=== PATIENT | male | born 1950 | race Caucasian/White ===

== ENCOUNTER 2021-12-23 10:19 | Observation (INO) ==
--- NOTE | 2021-12-21 10:56 | Anesthesiology Consultation ---
Date of Service December 21, 2021 Assessment & Plan (1) Encounter for pre-operative examination: Chart Review Chart Review: Acceptable Risk for Surgery and Patient NOT seen in Pre Admission Testing Consults Requested none History Surgery Operation Date: 12/23/21 12:40 Proposed Procedures p Right Total Knee Arthroplasty - Rohan Tamez DO Height/Weight Height: 5 ft 7.5 in Weight: 83.915 kg Allergies Allergy/AdvReac Type Severity Reaction Status Date / Time No Known Allergies Allergy Verified 12/20/21 15:31 Medications Home Medications Medication Instructions Recorded Confirmed Last Taken atorvastatin 20 mg tablet 20 mg PO QPM 06/14/21 12/20/21 Unknown ezetimibe 10 mg tablet 10 mg PO QPM 06/14/21 12/20/21 Unknown metoprolol tartrate 25 mg tablet 12.5 mg PO BID tab 06/14/21 12/20/21 Unknown nitroglycerin 0.4 mg sublingual 0.4 mg SUBLINGUAL Q3M PRN tab 06/14/21 12/20/21 Unknown tablet aspirin 81 mg capsule 81 mg PO QAM 08/17/21 12/20/21 Unknown Wheeled Walker #1 ea 08/23/21 08/23/21 Unknown Past Medical History Medical History Chronic kidney disease, stage 3a ? DETAILS Elevated prostate specific antigen [PSA] H/O acute myocardial infarction 2019, stent placed, follows with [facility] cardiology Hyperlipidemia Hypertension Osteoarthritis Prostatic intraepithelial neoplasia Past Family History Family History Other No family history of adverse response to anesthesia Past Surgical History Surgical History History of heart artery stent 2019 one stent at [facility] in [place] follow with [facility] cardio History of right shoulder replacement History of tonsillectomy Hx laparoscopic cholecystectomy Hx of colonoscopy Hx of rotator cuff surgery LEFT [place] teeth removed Social History Smoking Status: Never smoker tobacco type: smokeless tobacco Do You Dip or Chew Tobacco: Yes (ADVISED) Hx Alcohol Use: Yes Alcohol type: beer, wine and hard liquor alcohol intake frequency: a few times a week substance use type: does not use Testing Electrocardiogram Date: 08/23/21 Findings: + NSR @ and + RBBB Echocardiogram Date: 09/22/21 EF: 60-64 Valvular Disease: + no significant valvular disease
--- NOTE | 2021-12-22 18:10 | History & Physical Report ---
Date of Service December 22, 2021 Assessment & Plan (1) Osteoarthritis of right knee: We will proceed with a right total knee arthroplasty. Postoperatively he will be started on aspirin for DVT prophylaxis and kept overnight for postoperative medical management. He plans to use [employer] upon discharge. History of Present Illness Chief Complaint: Osteoarthritis of the right knee. Primary Care Provider: Johny Cole PA-C Vincent is a pleasant 71-year-old male who is been dealing with chronic worsening right knee pain. X-rays and clinical examination have been diagnostic for advanced arthritis of the right knee. After failing conservative treatment, he elected proceed with a right total knee arthroplasty. Allergies Allergy/AdvReac Type Severity Reaction Status Date / Time No Known Allergies Allergy Verified 12/20/21 15:31 Home Medications Medication Instructions Recorded Confirmed Type atorvastatin 20 mg tablet 20 mg PO QPM 06/14/21 12/20/21 History ezetimibe 10 mg tablet 10 mg PO QPM 06/14/21 12/20/21 History metoprolol tartrate 25 mg tablet 12.5 mg PO BID tab 06/14/21 12/20/21 History nitroglycerin 0.4 mg sublingual 0.4 mg SUBLINGUAL Q3M PRN tab 06/14/21 12/20/21 History tablet aspirin 81 mg capsule 81 mg PO QAM 08/17/21 12/20/21 History Wheeled Walker #1 ea 08/23/21 08/23/21 Rx Past Med/Surg History Medical History Chronic kidney disease, stage 3a ? DETAILS Elevated prostate specific antigen [PSA] H/O acute myocardial infarction 2019, stent placed, follows with [facility] cardiology Hyperlipidemia Hypertension Osteoarthritis Prostatic intraepithelial neoplasia Surgical History History of heart artery stent 2019 one stent at [facility] in [place] follow with [facility] cardio History of right shoulder replacement History of tonsillectomy Hx laparoscopic cholecystectomy Hx of colonoscopy Hx of rotator cuff surgery LEFT [place] teeth removed Family History Other No family history of adverse response to anesthesia Social History Smoking Status: Never smoker Second Hand Exposure: No; Hx Alcohol Use: Yes Alcohol type: beer, wine and hard liquor Preferred Language: Rw[place] Communication Ability: Effective [employer] Required: No Beliefs That Will Affect Care: None Current Living Situation: Spouse Feels Safe at Home: Yes Assistive Devices: Glasses Review of Systems All systems reviewed & are unremarkable except as noted in HPI & below. Physical Exam On physical examination the right knee, he has a slight valgus deformity. His range of motion from 0 to 120 degrees. Is no instability. He has pain over the distal medial femoral condyle and over the medial joint line.. Constitutional WD/WN, vitals as above Eyes PERRL, conjunctivae normal, anicteric sclerae ENMT external ear and nose normal, oropharynx normal Neck trachea midline, no thyromegaly Respiratory normal respiratory effort Cardiovascular RRR, no murmur, no edema Gastrointestinal (Abdomen) normal bowel sounds, soft, nontender, no hepatosplenomegaly Psychiatric A+Ox3, euthymic affect Results & Data Results & Data Laboratory Results . Diagnostic Findings X-rays of the right knee show advanced osteoarthritis with joint space narrowing, osteophyte formation, and [id number] articulation. PG Care Time/CCT Total # of Minutes Spent Total Time Spent with Patient: Total time spent is greater than 50% in coordination of care (as documented) at patient's floor/unit and/or counseling patient: Coding Level of Care Code None Diagnoses Osteoarthritis of right knee M17.11
[~2021-12-23 10:19] MED LIST: ACETAMINOPHEN 500 MG TAB PO SCH; BUPIVACAINE 0.5 % 5 MG/1 ML PF 10ML VIAL ONE; FAMOTIDINE 20 MG TAB PO SCH; GABAPENTIN 300 MG CAP PO SCH; Ketorolac (*for OR use only*) 30 MG, dexAMETHasone 4 MG, KETAMINE HCL (**OR use only) 1... INFIL SCH; LR 500ML BOLUS, THEN 15ML/HR IV SCH; LR 60ML/HR IV SCH; ROPIVACAINE 0.5% 5 MG/ML 30 ML VIAL ONE; TRANEXAMIC ACID 1,000 MG **IV Intra-op IV SCH; TRANEXAMIC ACID 1,000 MG **IV Pre-op IV SCH; ceFAZolin 2000MG 2,000 MG/15 ML SYR IV SCH; dexAMETHasone 4 MG TAB PO SCH
[2021-12-23] MEDS ORDERED: ONDANSETRON INJ 2 MG/ML 2 ML VIAL ONE (11:22)
[2021-12-23] MEDS ORDERED: DEXAMETHASONE SOD INJ 4 MG/ML VIAL ONE (11:22)
[2021-12-23] MEDS ORDERED: PROPOFOL IV EMULSION 10 MG/ML 20 ML VIAL IV ONE ×3 (11:22→12:00)
[2021-12-23] MEDS ORDERED: MIDAZOLAM HCL 1 MG/ML 2ML VIAL ONE (11:22)
[2021-12-23] MEDS ORDERED: fentaNYL citrate 100 MCG/2 ML VIAL ONE (11:22)
[2021-12-23] MEDS ORDERED: LIDOCAINE 2% 2 ML VIAL/AMP(20MG/ML) INFIL ONE (11:22)
--- NOTE | 2021-12-23 11:32 | History & Physical Bridge Note ---
Date of Service December 23, 2021 History & Physical Bridge Note I have examined the patient, reviewed the History & Physical and in the interval since the performance of the History & Physical I have noted the following changes of clinical significance: no changes noted
[2021-12-23] MEDS ORDERED: ePHEDrine sulfate 50 MG/ML AMP IV PRN (12:47)
[2021-12-23] MEDS ORDERED: ATROPINE SULFATE 0.1 MG/ML 10ML SYR IV PRN (12:47)
[2021-12-23] MEDS ORDERED: HYDROmorphone INJ 1 MG/ML SYRINGE IV PRN (12:47)
[2021-12-23] MEDS ORDERED: ONDANSETRON INJ 2 MG/ML 2 ML VIAL IV PRN ×2 (12:47→15:56)
--- NOTE | 2021-12-23 13:41 | Operative Report ---
PG Post Operative Report Pre & Post Diagnosis Operation Date: 12/23/21 12:40 Pre-Op Diagnosis: Right Knee Osteoarthritis Post-Op Diagnosis: Right Knee Osteoarthritis I identified the patient and participated in the time-out.: Yes Procedure Operation Date: 12/23/21 12:40 Actual Procedures p Right Total Knee Arthroplasty(Right) - Rohan Tamez DO Surgeon Rohan Tamez DO [place] Rohan Coronado PAC Estimated Blood Loss 10 Findings Consistent with Post-Op Diagnosis Specimens Right femoral and tibial bone Complications none Disposition Disposition: Recovery Room Indications Vincent is a pleasant 71-year-old male who is been dealing with chronic increasing right knee pain. X-rays and clinical examination were diagnostic for advanced arthritis of the right knee. After failing conservative treatment, he elected proceed with a right total knee arthroplasty. Description of Procedure Implants used: I used a Holli Persona total knee arthroplasty system with a size 9 standard femur, F tibia, 31 oval patella, and a size 10 medial congruent polyethylene bearing. All components were cemented in place with Biomet cement. Vincent name arrived [facility] for the above procedure. He was seen in the preoperative holding area and the operative extremity was identified and signed. He was given a preoperative antibiotic, TXA, a spinal anesthetic and an adductor nerve block. He was taken back to the operating room and laid on the table in supine position. He was given basic sedation. The operative knee was then prepped and draped in sterile fashion. A timeout was done, and the patient and the operative extremity was properly identified. A midline incision was made directly over the patella. Dissection was taken down to the extensor mechanism. A subvastus arthrotomy was used. The medial retinaculum was released and the fat pad was mostly excised. The knee was flexed and the ACL, PCL, and meniscus were removed. A drill was sent down the center of the femoral canal followed by an intramedullary dina. Off that dina a distal femoral cutting block was placed. 9 mm was resected off the distal femur at 5 of valgus. A posterior referencing AP sizing guide was then placed on the distal femur. The femur measured to be a size 9. 2 drill holes were placed in 3 of external rotation. A 4-in-1 cutting block was then impacted into place. Anterior, posterior, and chamfer cuts were then made. The proximal tibia was then exposed. An external tibial alignment guide was placed. A tibial cut guide was then anchored in place and the proximal tibia was then resected. The posterior aspect of the knee was then opened up and any additional meniscus fragments and osteophytes were removed. The tibia measured to be a size F. The tibial plate was then placed in the appropriate rotation and the tibia was drilled and punched. Trial components were then placed. I used a size 10 medial congruent polyethylene insert. The knee was brought through a full range of motion and felt to be stable. The peg holes for the femoral component were then drilled. The patella was then everted and 9 mm was resected off the posterior aspect of the patella. The patella measured to be a size 31 oval. 3 peg holes were then drilled. A trial patella was placed. The knee was once again brought through a full range of motion and felt to be stable. Trial components were then removed. The surrounding soft tissues were injected with 100 cc of an orthopedic pain control cocktail. All components were then cemented into place with Biomet cement. The final polyethylene insert was then snapped into place. Once cement was dry the tourniquet was deflated. Hemostasis was obtained. A dilute betadyne lavage was then done for 3 minutes. The joint was then irrigated with normal saline solution. The subvastus arthrotomy was then closed with #1 Vicryl suture. The skin was closed with 2-0 Vicryl, 3-0V lock suture, and sb. A soft compressive dressing was placed. He was then transferred to a hospital bed and taken to the postanesthesia care unit in stable condition. He tolerated the procedure well. Rohan Coronado PA-C, was present for the entire procedure. He was critical for patient positioning, prepping, draping, retraction exposure, wound closure and application of sterile dressing. I attest to the content of the Intraoperative Record and any orders documented therein. Any exceptions are noted below.
--- NOTE | 2021-12-23 14:37 | XRay Report ---
XR knee RT 1 or 2V routine HISTORY: 71 years-old Male Surgical Post Op right knee total joint arthroplasty COMPARISON: Knee radiographs 06/14/2021 TECHNIQUE: 2 views of the right knee FINDINGS: Right knee total joint arthroplasty with patellar resurfacing. Anterior midline skin sb are note d along with expected postoperative soft tissue swelling with deep tissue air. No acute fracture, mal alignment or unexpected opaque foreign body. IMPRESSION: Right knee total joint arthroplasty with expected postoperative changes. ACT 112: Negative or not required by law. The above report was generated using voice recognition software. It may contain grammatical, syntax o r spelling errors. Electronically signed by: Alok Santana M.D. 12/23/2021 2:36 PM
--- NOTE | 2021-12-23 15:42 | Anesthesiology Progress Note ---
Date of Service December 23, 2021 Anesthesia Post Procedure Vital Signs Vital Signs: Temp Pulse Pulse Resp BP BP Pulse Ox 12/23/21 15:40 36.3 C L 62 16 128/83 94 12/23/21 15:30 60 12 131/81 94 12/23/21 15:20 65 16 139/81 96 12/23/21 15:10 61 14 142/87 H 95 12/23/21 15:00 67 12 138/83 96 12/23/21 14:50 63 12 151/80 H 95 12/23/21 14:40 62 12 142/82 H 96 12/23/21 14:30 67 16 166/87 H 94 12/23/21 14:20 53 L 15 151/86 H 95 12/23/21 14:10 52 L 14 151/80 H 95 12/23/21 14:07 36.0 C L 75 12 150/81 H 98 12/23/21 11:00 36.6 C 68 18 115/82 100 Transfer of Care Handoff Completed per policy Notes Mental Status: alert / awake / arousable Patient Amnestic to Procedure: Yes Nausea / Vomiting: adequately controlled Pain: adequately controlled Airway Patency, RR, SpO2: stable & adequate BP & HR: stable & adequate Hydration State: stable & adequate Anesthetic Complications: no major complications apparent
[2021-12-23] MEDS ORDERED: NALOXONE HCL 0.4 MG/1 ML VIAL/CARP IV PRN (15:56)
[2021-12-23] MEDS ORDERED: MAGNESIUM HYDROXIDE SUSP 30 ML UDC PO PRN (15:56)
[2021-12-23] MEDS ORDERED: KETOROLAC 30 MG/ML VIAL IV SCH (15:56)
[2021-12-23] MEDS ORDERED: NITROGLYCERIN SL 0.4 MG/TAB TAB SL PRN (15:56)
[2021-12-23] MEDS ORDERED: oxyCODONE HCL IR 5 MG TAB (IMMEDIATE RELEASE) PO PRN (15:56)
[2021-12-23] MEDS ORDERED: METOCLOPRAMIDE HCL INJ 5 MG/ML 2 ML VIAL IV PRN (15:56)
[2021-12-23] MEDS ORDERED: bisacodyL 10 MG SUPP PR PRN (15:56)
[2021-12-23] MEDS ORDERED: HYDROmorphone INJ 0.5 MG/0.5 ML SYR IV PRN (15:56)
[2021-12-23] MEDS: SODIUM CHLORIDE 0.9% 1000ML 1,000 ML IV SCH (16:13)
[2021-12-23] MEDS ORDERED: PROMETHAZINE HCL 12.5 MG in SODIUM CHLORIDE 0.9% 50 ML IV PRN (16:25)
[2021-12-23] MEDS: KETOROLAC 30 MG/ML VIAL IV SCH ×2 (16:54→21:33)
[2021-12-23] MEDS: ceFAZolin 2000MG 2,000 MG/15 ML SYR IV SCH (20:23)
[2021-12-23] MEDS: ASPIRIN 81 MG ECTAB PO SCH (20:24)
[2021-12-23] MEDS: DOCUSATE SODIUM 100 MG CAP PO SCH (20:24)
[2021-12-23] MEDS: METOPROLOL TARTRATE 25 MG TAB PO SCH ×2 (20:24→20:47)
[2021-12-23] MEDS ORDERED: EZETIMIBE 10 MG TABLET PO SCH (21:00)
[2021-12-23] MEDS ORDERED: SENNA 8.6 MG TAB PO SCH (21:00)
[2021-12-23] MEDS ORDERED: ATORVASTATIN 20 MG TAB PO SCH (21:00)
[2021-12-23] MEDS: ACETAMINOPHEN 500 MG TAB PO SCH (21:33)
[2021-12-24] MEDS: SODIUM CHLORIDE 0.9% 1000ML 1,000 ML IV SCH (02:31)
[2021-12-24] MEDS: ceFAZolin 2000MG 2,000 MG/15 ML SYR IV SCH (05:17)
[2021-12-24] MEDS: KETOROLAC 30 MG/ML VIAL IV SCH ×2 (05:17→12:43)
[2021-12-24] MEDS: ACETAMINOPHEN 500 MG TAB PO SCH (05:17)
--- NOTE | 2021-12-24 07:53 | Discharge Summary ---
Date of Service December 24, 2021 Admission HPI (Per Admitting) Vincent is a pleasant 71-year-old male who is been dealing with chronic worsening right knee pain. X-rays and clinical examination have been diagnostic for advanced arthritis of the right knee. After failing conservative treatment, he elected proceed with a right total knee arthroplasty. Admission Exam (Per Admitting) On physical examination the right knee, he has a slight valgus deformity. His range of motion from 0 to 120 degrees. Is no instability. He has pain over the distal medial femoral condyle and over the medial joint line.. Principal Diagnosis Same as "Discharge Diagnosis" noted below under Discharge Instructions. Discharge Exam On physical examination of the right knee, the dressing is clean and dry. He has active dorsiflexion plantarflexion of his right ankle. Sensations intact throughout. Discharge Data Procedures Performed Operation Date: 12/23/21 12:40 Actual Procedures p Right Total Knee Arthroplasty(Right) - Rohan Tamez DO Ordered Studies 12/23/21 05:00 US - OR guided needle placemen Routine Hospital Course (1) Status post right knee replacement: On December 23, 2021 Vincent arrived to [facility] and underwent a right knee replacement without complication. He had a spinal anesthetic. Post operatively he was started on aspirin for DVT prophylaxis and transferred to the general orthopedic floors. His hospital course was uneventful. On postop day #1 his vital signs were stable and his pain was well controlled. He was able to participate well with physical therapy doing ambulation and range of motion exercises. He was then discharged home. He will follow-up with orthopedics in 2 weeks. PG Care Time/CCT Total # of Minutes Spent Total Time Spent with Patient: Total time spent is greater than 50% in coordination of care (as documented) at patient's floor/unit and/or counseling patient: Discharge Plan Discharge Items Patient Disposition: Home - Home Health Services Reason For Visit: DJD Knee Right Discharge Diagnosis: Right knee replacement Activity: Per Instructions section Non-emergency contact: Surgeon Call non-emergency contact if: your wound has increased redness and your wound has increased drainage Follow-up/Referrals: Johny Cole PA-C [Primary Care Provider] - Diet: Regular Addtl Attending Provider Instructions: Activity and Therapy Recommendations: * If you are using [facility] then therapy will be provided at your home until they feel you have accomplished all of your goals. * If you are using [facility] then Physical Therapy will be provided until they feel you are ready to start Outpatient Physical Therapy. * If you are not using home therapy then Outpatient Physical Therapy should start about 3-5 days from your day of surgery. Therapy will last about 6-10 weeks * It is important not to put a pillow under your knee when you are relaxing or sleeping. It is just as important to make sure you are getting your knee perfectly straight as it is to regain your knee bend. * You were shown a series of exercises in the hospital. Do these exercises three times each day including the exercises you were shown in physical therapy. * Get up and walk several times each day. For the first four weeks, try not to stand or walk for more than one hour at a time. If you do stand or walk for more than one hour, you will not hurt anything, but your leg will likely swell. * As you feel comfortable, you may change from the walker or crutches to a cane and then to independent walking. Medications: * Narcotic You will likely be sent home from the hospital with a prescription for the narcotic pain medication that worked best throughout your stay. * Aspirin Most patients will be required to take Aspirin 81mg twice a day for 6 weeks after surgery. This is obtained [id number] and a prescription is not necessary. * Other medications may be prescribed for specific circumstances. If you have any questions, please call the office at . * Resume previous home medications unless otherwise instructed TEDs/Elastic Stockings: The white elastic stockings help limit swelling and prevent blood clots from forming in your legs.~ The more you wear them, the more they work. Wear them for six weeks. Dressing Care: The dressing can be changed after physical therapy on postop day #1. Daily dry dressing changes for a few days, especially if the incision is still draining some. If the incision is not draining then you may leave the sb open to air. If there is a little bit of drainage or if the sb are getting stuck on your clothing then cover the incision with a dry dressing. The sb will be removed at your 2 week follow-up appointment. Showering: You may shower 5 days from the day of surgery as long as the incision is no longer draining. You may shower with the sb exposed. Let soapy water run over the sb and pat them dry. Do not scrub or soak the incision. Things To Watch For: * Drainage from the incision site that occurs more than one week after your surgery. * Increased redness at the incision site. * Fever above 102 degrees Fahrenheit. * Unusual chest pain or shortness of breath. * Call [facility] at with any of the above problems Follow-Up Visit: Follow-up with Dr. Tamez's PA (Rohan Coronado) 2-3 weeks after your day of surgery. He will remove your sb and answer any questions. If you have any additional questions or concerns, Dr Tamez is usually in the office at the same time and will be available An appointment was probably scheduled when you signed-up for surgery in the office. If you have any questions call Office Instructions: More detailed instructions as well as Frequently Asked Questions were provided in a folder by our office when you signed-up for surgery. Please review these instructions when you get home. If you have any further questions or concerns, please feel free to call the office at [phone] Pending Studies at Discharge: No Stand-Alone Forms: My [facility] Medications and DC Order Prescriptions: New oxycodone-acetaminophen 5-325 mg tablet 1 tab PO Q6H PRN (Reason: pain) Qty: 30 RF: 0 Continued atorvastatin 20 mg tablet 20 mg PO QPM RF: 0 metoprolol tartrate 25 mg tablet 12.5 mg PO BID RF: 0 nitroglycerin 0.4 mg tablet, sublingual 0.4 mg sublingual Q3M PRN (Reason: cp) RF: 0 ezetimibe 10 mg tablet 10 mg PO QPM RF: 0 (DME) Wheeled Walker Misc See Rx Instructions .MEDSUPPLY Qty: 1 RF: 0 losartan 50 mg Tablet 50 mg PO DAILY RF: 0 rosuvastatin 10 mg Tablet 10 mg PO DAILY RF: 0 Changed aspirin 81 mg Capsule 81 mg PO BID 42 Days Qty: 0 RF: 0 Discharge Orders: Discharge Order (Routine); Ordered 12/24/21 Ordered By: Rohan Tamez Admission Data Admit Date/Time: 12/23/21 14:17 Attending Provider: Rohan Tamez Admit Provider: Rohan Tamez Primary Care Provider: Johny Cole
--- NOTE | 2021-12-24 07:53 | Orthopedic Progress Note ---
Date of Service December 24, 2021 Assessment & Plan (1) Status post right knee replacement: Overall he is doing fairly well. Is not having much pain in the right knee. He will be seen by physical therapy today for ambulation and range of motion exercises. The nursing staff can change his dressing after physical therapy. He is on aspirin for DVT prophylaxis. He can be discharged home later today. He will follow-up with orthopedics in 2 weeks. Vibha Kaur was seen and examined at bedside this morning. Overall is doing very well. Is not having much pain in his right knee. He has been up and ambulating to the bathroom. He has no complaints.. Review of Systems All systems reviewed & are unremarkable except as noted in HPI & below. Physical Exam On physical examination of the right knee, the dressing is clean and dry. He has active dorsiflexion plantarflexion of his right ankle. Sensations intact throughout. Results & Data Results & Data Laboratory Results . Diagnostic Findings Postoperative x-rays of the right knee show the prosthesis to be in anatomic alignment without any evidence of fracture, dislocation, or loosening. PG Care Time/CCT Total # of Minutes Spent Total Time Spent with Patient: Total time spent is greater than 50% in coordination of care (as documented) at patient's floor/unit and/or counseling patient: Coding Level of Care Code 06493 Post Operative Follow-Up Diagnoses Status post right knee replacement Z96.651
[2021-12-24 07:59] VITALS: BP 97/59; TEMP 97.9; O2SAT 92
[2021-12-24] MEDS ORDERED: dexAMETHasone 4 MG TAB PO SCH (08:00)
[2021-12-24] MEDS ORDERED: MULTIVITAMIN TAB PO SCH (09:00)
[2021-12-24] MEDS ORDERED: ROSUVASTATIN CALCIUM 10 MG TAB PO SCH (09:00)
[2021-12-24] MEDS ORDERED: LOSARTAN POTASSIUM 50 MG TAB PO SCH (09:00)
[2021-12-24] MEDS ORDERED: NON-FORMULARY MEDICATION (Aspirin 81 mg Capsule) PO SCH (09:00)
[2021-12-24] MEDS: DOCUSATE SODIUM 100 MG CAP PO SCH (09:11)
[2021-12-24] MEDS: METOPROLOL TARTRATE 25 MG TAB PO SCH (09:11)
[2021-12-24] MEDS: ASPIRIN 81 MG ECTAB PO SCH (09:12)
[2021-12-24 09:26] VITALS: PULSE 68
== END 2021-12-24 12:30 | disposition home health service (06) ==
LOC: ASU 10:19 → 3E 10:19